=== PATIENT | female | born 1940 | race Caucasian/White ===

== ENCOUNTER → 2017-08-19 | Outpatient (CLI) | payer OTHER ==
[~2017-08-19] MED LIST: ALBU8.5H8 INH; BUDE10.2 INH; CEFD300C37 PO; CHOL10003 PO; DOXY100T PO; ESTR0.6246 PO; METO-95 PO; PRED20TA PO
== END | disposition home or self-care (01) ==
LOC: CFH 11:06
PROVIDERS: ATTEND Genetic Counselor, MS
DX: E04.1 Nontoxic single thyroid nodule (principal)
CPT/HCPCS: 76536

== ENCOUNTER → 2017-10-01 | Outpatient (CLI) | payer OTHER ==
[~2017-10-01] MED LIST changes: +LIDOCAINE-MPF 1%, 2ML ONE
== END | disposition home or self-care (01) ==
LOC: RAD 08:38
PROVIDERS: ATTEND Genetic Counselor, MS
DX: E04.1 Nontoxic single thyroid nodule (principal); E07.9 Disorder of thyroid, unspecified
CPT/HCPCS: 10022; 76942; 88172; 88173; J3490

== ENCOUNTER → 2017-10-29 | Outpatient (CLI) | payer OTHER ==
[~2017-10-29] MED LIST changes: +ALBUTEROL PO; +CALCIUM PO; +HYDR12.58 PO; -LIDOCAINE-MPF 1%, 2ML ONE; +LOVA40TA2 PO
[2017-10-29 15:06] LABS: ALANINE AMINOTRANSFERASE 31 U/L (12-78); ALBUMIN 3.9 g/dL (3.4-5.0); ANION GAP 4 mmol/L (5-15); CHLORIDE 110 mmol/L (98-107); CREATININE 0.93 mg/dL (0.55-1.02)
[2017-10-29 15:08] LABS: ALKALINE PHOSPHATASE 85 U/L (45-117); BILIRUBIN,TOTAL 0.8 mg/dL (0.2-1.0); TOTAL PROTEIN 6.7 g/dL (6.4-8.2)
== END | disposition home or self-care (01) ==
LOC: STAR 13:30
PROVIDERS: ATTEND Surgery
DX: Z01.818 Encounter for other preprocedural examination (principal)
CPT/HCPCS: 36415; 80053; 93005

== ENCOUNTER 2017-11-03 09:31 | Day surgery (SDC) | payer OTHER ==
[~2017-11-03] VITALS: Ht 170.2 cm; Wt 64.0 kg
[2017-11-03] MEDS ORDERED: LACTATED RINGERS 1,000 ML IV SCH (10:20)
[2017-11-03] MEDS ORDERED: ONDANSETRON ODT 8 MG PO ONE ×2 (11:00→13:00)
[2017-11-03] MEDS ORDERED: GABAPENTIN 300 MG CAPSULE PO ONE ×2 (11:00→13:00)
[2017-11-03] MEDS ORDERED: ACETAMINOPHEN 500 MG TABLET PO ONE ×2 (11:00→13:00)
[2017-11-03] MEDS ORDERED: FENTANYL PF 100 MCG/2ML ONE ×2 (11:03→13:11)
[2017-11-03] MEDS ORDERED: MIDAZOLAM 1 MG/ML, 2ML ONE (11:03)
[2017-11-03] MEDS ORDERED: LIDOCAINE GEL 2%, 5ML ONE (11:05)
[2017-11-03 11:18] VITALS: BP 150/82
[2017-11-03] MEDS ORDERED: LABETALOL 5MG/ML 40ML VIAL ONE (11:48)
[2017-11-03] MEDS ORDERED: DEXAMETHASONE 4 MG/ML, 1ML ONE (12:19)
[2017-11-03] MEDS ORDERED: ONDANSETRON 2MG/ML, 2ML ONE (12:19)
[2017-11-03] MEDS ORDERED: SUCCINYLCHOLINE 20 MG/ML, 10ML ONE (12:19)
[2017-11-03] MEDS ORDERED: PROPOFOL 10 MG/ML, 20ML ONE (12:19)
[2017-11-03] MEDS ORDERED: CEFAZOLIN 1,000 MG ONE (12:19)
[2017-11-03] MEDS ORDERED: PROMETHAZINE 25 MG/ML, 1ML IV PRN (12:30)
[2017-11-03] MEDS ORDERED: ALBUTEROL/IPRATROPIUM 2.5MG/0.5MG, 3 ML NPPB PRN (12:30)
[2017-11-03] MEDS ORDERED: FENTANYL PF 100 MCG/2ML IV PRN (12:30)
[2017-11-03] MEDS ORDERED: MEPERIDINE/PF 25MG/0.5ML IVPush PRN (12:30)
[2017-11-03] MEDS ORDERED: HYDROmorphone 1 MG/ML, 1ML IV PRN (12:30)
[2017-11-03] MEDS ORDERED: MIDAZOLAM 1 MG/ML, 2ML IV PRN (12:30)
[2017-11-03] MEDS ORDERED: ALBUTEROL SULFATE 2.5 MG/3 ML NPPB PRN (12:30)
[2017-11-03] MEDS ORDERED: MORPHINE SULFATE 4 MG/ML, 1ML IVPush PRN (12:30)
[2017-11-03] MEDS ORDERED: DIPHENHYDRAMINE 50 MG/ML, 1ML IVPush PRN (12:30)
[2017-11-03] MEDS ORDERED: hydrALAzine 20 MG/ML, 1ML IV PRN (12:30)
[2017-11-03] MEDS ORDERED: ONDANSETRON ODT 8 MG PO PRN (12:30)
[2017-11-03] MEDS ORDERED: LABETALOL 5MG/ML, 20ML IV PRN (12:30)
[2017-11-03] MEDS ORDERED: EPHEDRINE 50 MG/ML, 1ML IM PRN (12:30)
[2017-11-03] MEDS ORDERED: OXYcodone 5 MG/5 ML ORAL.SOL UDC PO PRN (12:30)
[2017-11-03] MEDS ORDERED: hydrALAzine 20 MG/ML, 1ML ONE (13:17)
[2017-11-03] MEDS ORDERED: OXYcodone 5 MG/5 ML ORAL.SOL UDC ONE (13:22)
== END 2017-11-03 16:05 ==
LOC: OUT 09:31
PROVIDERS: ATTEND Surgery
DX: D34 Benign neoplasm of thyroid gland (principal); E78.5 Hyperlipidemia, unspecified; J44.9 Chronic obstructive pulmonary disease, unspecified; Z72.89 Other problems related to lifestyle; Z87.891 Personal history of nicotine dependence
CPT/HCPCS: 60220; 88307; C1760; J0330; J0360; J0690; J1100; J2405; J2704; J3010; J7120; Q0162; J2250